=== PATIENT | male | born 1985 | race Asian ===

== ENCOUNTER 2018-04-06 00:30 | Emergency (ER) | payer SELFPAY ==
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
[2018-04-06 01:09] VITALS: BP 124/71
--- NOTE | 2018-04-06 01:31 | CT SCAN REPORT ---
EXAMINATION: NONCONTRAST HEAD CT NONCONTRAST MAXILLOFACIAL CT INDICATION INFORMATION: Head injury COMPARISON: None TECHNIQUE: Separate noncontrast CT examinations of the head and maxillofacial bones were performed. Coronal and sagittal images were created for each examination at the technologist workstation. DLP: 1295.83 mGy-cm FINDINGS: Head: There is no evidence of acute intracranial hemorrhage or territorial infarction. No abnormal mass-effect or midline shift is seen. Currie to white matter differentiation is well preserved. No extra-axial fluid collections are identified. The ventricles are normal in size. There is no abnormal attenuation within the brain parenchyma. The osseous structures and soft tissues are normal. The mastoid air cells are well aerated. Maxillofacial: No acute maxillofacial fractures are seen. Left zygomaticomaxillary soft tissue swelling is noted. There is partial opacification of the bilateral maxillary sinuses inferiorly. There is mucosal thickening along the bilateral infundibula. There is minimal mucosal thickening in the bilateral sphenoid sinuses. There is partial opacification of the bilateral ethmoid air cells, right greater than left. There is slight mucosal thickening of the frontal sinuses inferiorly. The mandibular condyles are well-seated in the condylar fossa. The orbits demonstrate a normal appearance bilaterally. The globes are intact, and there are no suspicious findings to suggest retrobulbar hemorrhage. IMPRESSION: 1. No acute intracranial findings. 2. No acute maxillofacial fracture. Left zygomaticomaxillary soft tissue swelling. 3. Partial paranasal sinus opacification as described above.
== END 2018-04-06 02:49 ==
LOC: ERH 00:30
DX: S00.83XA Contusion of other part of head, initial encounter (principal); S09.90XA Unspecified injury of head, initial encounter; Y04.8XXA Assault by other bodily force, initial encounter; Y92.9 Unspecified place or not applicable; Y93.9 Activity, unspecified